=== PATIENT | male | born 1940 | race Caucasian/White ===

== ENCOUNTER → 2017-06-26 | Outpatient (CLI) | payer MEDICARE ==
[~2017-06-26] MED LIST: AMLODIPINE BESY10 MG PO; ASPIR 8181 M1 PO; ASPIRIN81 M2 PO; AZULFIDINE500 MG PO; BENICAR HCT 401 EACH PO; COLACE100 MG PO; COZAAR 50 MG TA50 M2 PO; ELIQUIS5 MG PO; FLEXERIL PO; FOLIC ACID 40400 MC1 PO; METAMUCIL1 EAC1 PO; METRONIDAZOLE500 M4 PO; NAPROSYN500 MG PO; NORCO 5-325 TA1 EACH PO; OXYCODONE HCL 55 MG PO; PAMELOR10 MG PO; PROTONIX40 M1 PO; REQUIP 0.25 M0.25 M1 PO; TRIAMCINOLONE A80 G2 TOP; TROKENDI XR50 MG PO; TYLENOL325 MG PO
== END ==
LOC: M.MRI 15:21
DX: M48.061 Spinal stenosis, lumbar region without neurogenic claudication (principal); G31.89 Other specified degenerative diseases of nervous system; M51.27 Other intervertebral disc displacement, lumbosacral region; M47.897 Other spondylosis, lumbosacral region; M47.896 Other spondylosis, lumbar region; M25.78 Osteophyte, vertebrae; I10 Essential (primary) hypertension

== ENCOUNTER → 2017-09-10 | Outpatient (CLI) | payer MEDICARE | LOC: M.MRI 07:22 | DX: S83.201A Bucket-handle tear of unspecified meniscus, current injury, left knee, initial encounter (principal); S83.202A Bucket-handle tear of unspecified meniscus, current injury, unspecified knee, initial encounter; M17.11 Unilateral primary osteoarthritis, right knee; X58.XXXA Exposure to other specified factors, initial encounter; Y93.89 Activity, other specified; Y92.89 Other specified places as the place of occurrence of the external cause; Y99.8 Other external cause status ==

== ENCOUNTER 2017-12-16 11:09 | Emergency (ER) | payer MEDICARE ==
[~2017-12-16] VITALS: Ht 182.9 cm; Wt 107.5 kg
[~2017-12-16 11:09] MED LIST changes: -COLACE100 MG PO; -ELIQUIS5 MG PO; -METAMUCIL1 EAC1 PO; -NORCO 5-325 TA1 EACH PO; -OXYCODONE HCL 55 MG PO; -TYLENOL325 MG PO
[2017-12-16 13:08] VITALS: BP 172/88
== END 2017-12-16 13:09 | disposition home or self-care (01) ==
LOC: M.ERS 11:09
DX: S61.211A Laceration without foreign body of left index finger without damage to nail, initial encounter (principal); I10 Essential (primary) hypertension; X58.XXXA Exposure to other specified factors, initial encounter; Y93.89 Activity, other specified; Y92.89 Other specified places as the place of occurrence of the external cause; Y99.8 Other external cause status

== ENCOUNTER 2017-12-19 07:53 | Inpatient (IN) | payer MEDICARE ==
[2017-12-04 09:06] LABS: ABSOLUTE BASOPHILS 0.1 thou/uL (0.0-0.2); ABSOLUTE EOSINOPHILS 0.3 thou/uL (0.0-0.7); ABSOLUTE LYMPHOCYTES 1.3 thou/uL (0.8-5.3); ABSOLUTE MONOCYTES 0.6 thou/uL (0.0-1.2); ABSOLUTE NEUTROPHILS 2.5 thou/uL (1.6-8.1); EOSINOPHILS 5.6 %; HEMATOCRIT 38.3 % (42.0-52.0); LYMPHOCYTES 26.3 %; MCH 31.6 pg (26.0-34.0); MCHC 33.9 g/dL (28.0-37.0); MCV 93.2 fL (80.0-100.0); MONOCYTES 13.3 %; MPV 7.7 fl. (7.2-11.1); NUCLEATED RBCS 0 /100WBC; PLATELET COUNT* 215 thou/uL (150-400); POLYS 52.8 %; RDW-CV 13.3 % (10.5-14.5); WBC 4.8 thou/uL (4.0-11.0)
[2017-12-04 09:15] LABS: APTT 26.4 Seconds (25.0-31.3); INR 1.1; PROTIME 10.3 Seconds (9.20-11.50)
[2017-12-04 09:45] LABS: ALBUMIN 3.4 g/dL (3.4-5.0); CALCIUM 8.1 mg/dL (8.5-10.1); CREATININE 1.6 mg/dL (0.6-1.3); TOTAL BILIRUBIN 0.4 mg/dL (<0.1-1.0); TOTAL PROTEIN 6.3 g/dL (6.4-8.2)
[2017-12-04 10:54] LABS: ESR (SEDRATE) 0 mm/hr (0-20)
--- NOTE | 2017-12-04 11:43 | EKG ---
[place] [address] ELECTROCARDIOGRAM REPORT Name: KRISS PAREDES Room: PRE IN [facility]#: [id number] Admission: Attend Phys: Frieda Harding Discharge: Date of : 44 Report #: [id number] THIS REPORT FOR: //name// [facility] Test Date: 2017-12-04 Test Time: 09:17:08 Pat Name: KRISS PAREDES Department: Room: Gender: M Beer Maker: : 1940 Requested By: Indio Preciado Order Number: [id number] Reading MD: Sharath Hernandez Measurements Intervals [place] Rate: 60 P: 41 CA: 162 QRS: 34 QRSD: 106 T: 44 QT: 440 QTc: 440 Interpretive Statements Sinus rhythm Compared to ECG 03/31/2013 10:46:53 No significant changes Electronically Signed On 12-04-2017 11:42:55 CDT by Sharath Hernandez [email or web address] <ELECTRONICALLY SIGNED> By: Sharath Hernandez MD, [facility] 12/04/17 1142 0917 09 Sharath Hernandez MD, FACC /EPI
[~2017-12-19] VITALS: Ht 167.6 cm; Wt 104.3 kg
[2018-01-19 06:06] LABS: ABSOLUTE BASOPHILS 0.1 thou/uL (0.0-0.2); ABSOLUTE EOSINOPHILS 0.4 thou/uL (0.0-0.7); ABSOLUTE LYMPHOCYTES 1.5 thou/uL (0.8-5.3); ABSOLUTE MONOCYTES 0.6 thou/uL (0.0-1.2); ABSOLUTE NEUTROPHILS 3.1 thou/uL (1.6-8.1); BASOPHILS 1.9 %; EOSINOPHILS 7.7 %; HEMATOCRIT 39.2 % (42.0-52.0); HEMOGLOBIN 13.1 gm/dL (14.0-18.0); LYMPHOCYTES 25.7 %; MCH 31.2 pg (26.0-34.0); MCHC 33.4 g/dL (28.0-37.0); MCV 93.4 fL (80.0-100.0); MONOCYTES 10.6 %; MPV 7.7 fl. (7.2-11.1); NUCLEATED RBCS 0 /100WBC; PLATELET COUNT* 250 thou/uL (150-400); POLYS 54.1 %; RDW-CV 13.1 % (10.5-14.5); WBC 5.7 thou/uL (4.0-11.0)
[2018-01-19 06:16] LABS: APTT 26.8 Seconds (25.0-31.3); INR 1.1; PROTIME 10.7 Seconds (9.20-11.50)
[2018-01-19 06:20] LABS: ALBUMIN 3.1 g/dL (3.4-5.0); CALCIUM 8.3 mg/dL (8.5-10.1); CREATININE 1.6 mg/dL (0.6-1.3); POTASSIUM 4.1 mmol/L (3.5-5.1); TOTAL BILIRUBIN 0.5 mg/dL (<0.1-1.0); TOTAL PROTEIN 6.7 g/dL (6.4-8.2)
[2018-01-19 07:14] LABS: ESR (SEDRATE) 10 mm/hr (0-20)
[2018-01-30 07:25] VITALS: BP 178/107
[2018-01-30 15:29] VITALS: BP 180/91
[2018-01-30 21:00] VITALS: BP 181/94
[2018-01-31 04:00] VITALS: BP 177/94
[2018-01-31 04:01] LABS: HEMOGLOBIN 11.9 gm/dL (14.0-18.0)
[2018-01-31 10:00] VITALS: BP 126/72
[2018-01-31 17:08] VITALS: BP 142/80
[2018-01-31 21:30] VITALS: BP 168/80
[2018-02-01 00:40] VITALS: BP 149/85
[2018-02-01 04:03] VITALS: BP 148/85
[2018-02-01 04:15] LABS: HEMATOCRIT 35.6 % (42.0-52.0); HEMOGLOBIN 11.8 gm/dL (14.0-18.0)
[2018-02-01 08:10] VITALS: BP 133/67
[2018-02-01 15:31] VITALS: BP 142/49
[2018-02-02 00:39] VITALS: BP 150/77
[2018-02-02 04:37] VITALS: BP 169/98
[2018-02-02 08:00] VITALS: BP 153/88
[2018-02-02] MEDS ORDERED: TYLENOL325 MG PO (14:36)
[2018-02-02] MEDS ORDERED: NORCO 5-325 TA1 EACH PO (14:37)
[2018-02-02] MEDS ORDERED: OXYCODONE HCL 55 MG PO (14:38)
[2018-02-02] MEDS ORDERED: METAMUCIL1 EAC1 PO (14:39)
[2018-02-02] MEDS ORDERED: ELIQUIS5 MG PO (14:43)
[2018-02-02] MEDS ORDERED: COLACE100 MG PO (14:44)
[2018-02-02 14:48] VITALS: BP 153/88
[2018-02-02 16:03] VITALS: BP 149/83
--- NOTE | 2018-02-08 09:29 | OP ---
[address] [address] OPERATIVE REPORT Name: KRISS PAREDES Room: [address] IN .R.#: [id number] Admission: 01/30/18 Attend Phys: Frieda Harding Discharge: 02/02/18 Date of : 44 Report #: [id number] THIS REPORT FOR: //name// CC: Indio Chavez DICTATED BY: Vincent Mccartney DO DATE OF SERVICE: 01/30/2018 PREOPERATIVE DIAGNOSIS: Primary advanced osteoarthritis, right knee. POSTOPERATIVE DIAGNOSIS: primary advanced osteoarthritis, right knee. PROCEDURE: Right total knee arthroplasty utilizing MicroPort Medial Pivot total knee arthroplasty system with the following components: 1. A size 7 right keeled tibial baseplate. 2. Size 7 right CR femur. 3. A 14 mm medial pivot polyethylene tibial bearing/spacer. 4. Two bags of plain [place] bone cement. SURGEON: Indio Preciado DO ASSISTANTS: Vincent Mccartney DO and Norman Doyle DO ANESTHESIA: General as well as local cocktail injected in the posterior capsule and a right lower extremity nerve block performed by anesthesia. ESTIMATED BLOOD LOSS: 150 mL ANTIBIOTICS: 2 g Ancef IV preoperatively. SPECIMENS: None. DRAINS: None. TOURNIQUET TIME: 40 minutes at 300 mmHg to the right lower extremity. COMPLICATIONS: None. DISPOSITION: Stable to PACU and will be admitted to the hospital for standard postoperative care. INDICATION FOR PROCEDURE: The patient is a pleasant 78-year-old male who was seen in [facility] multiple times with complaints [place] [address] OPERATIVE REPORT Name: KRISS PAREDES Manda Room: [address] IN [facility].#: [id number] Admission: 01/30/18 Attend Phys: Frieda Harding Discharge: 02/02/18 Date of : 44 Report #: [id number] pain that was worsening over the last couple of years. It is greatly impacting his quality of life, performing activities that he wishes to, was refractory to conservative measures consisting of oral anti-inflammatories, activity modifications, home physical therapy exercises and intra-articular corticosteroid injections for much greater than 6 months' duration. Therefore, we recommended proceeding with a right total knee arthroplasty. Risks, benefits, complications, indications and alternative treatments were discussed, and the patient wished to proceed with surgery today. DESCRIPTION OF PROCEDURE: The patient was seen in preoperative holding area, correct operative site, right knee was initialed. The patient was taken back to the operating suite, placed in supine position on the operating table, given benefit of general anesthetic. A well-padded tourniquet was placed to the right upper thigh. Right lower extremity was prepped and draped in typical fashion. Surgery began with a timeout identifying correct patient, correct procedure, correct preoperative antibiotics, correct performing surgeon and correct operative site. Next, tourniquet was inflated to 300 mmHg. A standard anterior midline longitudinal incision was made directly over the right knee extending from roughly 3-4 fingerbreadths proximal to the superior pole of the patella down to the tibial tubercle. Skin was incised with a #10 blade scalpel. Subcutaneous tissues were sharply incised down to the prepatellar fascia. Next, a new #10 blade scalpel was used to make a standard medial parapatellar arthrotomy. Subperiosteal dissection of the medial subperiosteal sleeve and to a lesser extent, lateral subperiosteal sleeve paying close attention to the patellar tendon was performed at the proximal tibia. Patella was everted and knee was flexed. A drill was used to enter the femur intramedullary canal in the normal fashion followed by insertion of the intramedullary distal femoral cutting guide. This was set at 10 mm and a 5-degree valgus resection. The cutting block was pinned into place. Resection was carried out in normal fashion. Bony debris was removed. AP sizer was placed to the distal femur, sized to a size 7. A 4-in-1 cutting block was impacted in 3 degrees external rotation of the distal femur in a normal fashion. It was pinned into place. Anterior, posterior chamfer cuts were carried out using the oscillating saw. Bony debris was removed. Next, extramedullary tibial guide was aligned appropriately over the medial aspect of the tibial tubercle, the tibial crest and the second metatarsal and center of the talus. A 10 mm resection was measured off the high lateral side. Tibial cutting block was pinned into place in normal fashion. A proximal tibia cut was performed in normal fashion protecting all ligamentous and other surrounding neurovascular structures. Next, menisci were excised using electrocautery. The knee was taken into extension. A 10 mm spacer block was inserted. We had plenty of bony resection to insert this and a drop myrna was inserted verifying appropriate alignment of our right lower extremity. Next, knee was flexed. A trial tibia was placed and it was size 7. It was pinned in position in the appropriate amount of rotation. Femoral component was impacted into place and was pinned into place. Next, [place] [address] OPERATIVE REPORT Name: KRISS PAREDES Room: [address] IN [facility]#: [id number] Admission: 01/30/18 Attend Phys: Frieda Harding Discharge: 02/02/18 Date of : 44 Report #: [id number] trial 12 followed by 14 mm polyethylene spacer was inserted, felt to have full flexion and extension and well-balanced, symmetric with both varus and valgus stressing, felt to be stable throughout range of motion and mid flexion stability with anterior and posterior drawer type maneuvers. Patella was decided not to be resurfaced at this time as it had a very minimal wear pattern noted. Next, trial femur was removed. Tibia was drilled and a cruciate punched in normal fashion. A tibial trial was removed as well. Next, all bony surfaces were thoroughly irrigated with pulsatile lavage, and the final components were cemented into place starting with the tibia followed by the femoral component. All excess cement was removed after impacting the final components into place. A final 14 mm polyethylene spacer was inserted at this time and impacted into the locking mechanism. A standard local cocktail was injected. Posterior capsule was cauterized prior to placing our final components. Tourniquet was deflated after allowing adequate time for our cement to harden. Knee was thoroughly irrigated and the capsule was closed with a few [id number] #1 Vicryl sutures followed by running #2 Stratafix barbed suture. Subcutaneous tissues were closed with a 2-0 Vicryl suture in a simple inverted fashion followed by subcuticular running suture using 3-0 Stratafix. Dermabond skin glue was applied. Standard dressings were applied consisting of Mepilex, BOBBI hose, and the patient was weaned from general anesthetic, transferred in stable condition to the PACU. All sponge and needle counts were correct x 2. <ELECTRONICALLY SIGNED> By: Indio Preciado DO 02/08/18 0929 0926 [id number] Preciado DO /nt
== END 2018-02-02 17:41 | DRG 470 ==
LOC: M.PRE 07:53 → M.TBA 01-30 06:02 → M.PRE 01-30 08:32 → M.ORTHSURG 01-30 11:23
PROVIDERS: Orthopaedic Surgery; ADMIT Internal Medicine
PROC: 0SRC0J9 Replacement of Right Knee Joint with Synthetic Substitute, Cemented, Open Approach (ICD-10-PCS; principal; 2018-01-30)
DX: M17.11 Unilateral primary osteoarthritis, right knee (principal); I10 Essential (primary) hypertension; K59.00 Constipation, unspecified; R41.0 Disorientation, unspecified; Z79.899 Other long term (current) drug therapy

== ENCOUNTER → 2018-02-11 | Outpatient (CLI) | payer MEDICARE ==
[~2018-02-11] MED LIST changes: +COLACE100 MG PO; +ELIQUIS5 MG PO; +METAMUCIL1 EAC1 PO; +NORCO 5-325 TA1 EACH PO; +OXYCODONE HCL 55 MG PO; +TYLENOL325 MG PO
== END ==
LOC: M.CT 08:22
DX: S00.93XD Contusion of unspecified part of head, subsequent encounter (principal); G31.9 Degenerative disease of nervous system, unspecified; X58.XXXD Exposure to other specified factors, subsequent encounter

== ENCOUNTER → 2018-08-10 | Outpatient (CLI) | payer MEDICARE | LOC: M.MRI 08-05 11:30 | DX: G31.9 Degenerative disease of nervous system, unspecified (principal); K21.9 Gastro-esophageal reflux disease without esophagitis; R26.9 Unspecified abnormalities of gait and mobility ==

== ENCOUNTER → 2019-05-13 | Outpatient (CLI) | payer MEDICARE | LOC: M.MRI 05-10 11:56 → M.CT 07:42 | DX: G31.9 Degenerative disease of nervous system, unspecified (principal); G45.9 Transient cerebral ischemic attack, unspecified; K21.9 Gastro-esophageal reflux disease without esophagitis; E11.9 Type 2 diabetes mellitus without complications; R26.9 Unspecified abnormalities of gait and mobility; R91.1 Solitary pulmonary nodule; R44.3 Hallucinations, unspecified; G47.62 Sleep related leg cramps; I10 Essential (primary) hypertension; R90.82 White matter disease, unspecified ==

== ENCOUNTER 2019-06-01 16:55 | Inpatient (IN) | payer MEDICARE ==
[~2019-06-01] VITALS: Ht 182.9 cm; Wt 109.3 kg
[2019-06-01 17:11] VITALS: BP 225/118
[2019-06-01] MEDS ORDERED: SUPER THERAVIT1 EACH PO (17:17)
[2019-06-01] MEDS ORDERED: VITAMIN D1000 UNI2 PO (17:17)
[2019-06-01] MEDS ORDERED: VENLAFAXINE HCL75 M2 PO (17:19)
[2019-06-01 17:59] LABS: ABSOLUTE BASOPHILS 0.1 thou/uL (0.0-0.2); ABSOLUTE EOSINOPHILS 0.2 thou/uL (0.0-0.7); ABSOLUTE MONOCYTES 0.7 thou/uL (0.0-1.2); ABSOLUTE NEUTROPHILS 2.2 thou/uL (1.6-8.1); BASOPHILS 1.3 %; HEMATOCRIT 35.1 % (42.0-52.0); LYMPHOCYTES 24.7 %; MCH 32.7 pg (26.0-34.0); MCHC 34.3 g/dL (28.0-37.0); MCV 95.3 fL (80.0-100.0); MPV 7.4 fl. (7.2-11.1); NUCLEATED RBCS 0 /100WBC; PLATELET COUNT* 230 thou/uL (150-400); RBC 3.68 mil/uL (4.50-6.00); RDW-CV 12.4 % (10.5-14.5); WBC 4.2 thou/uL (4.0-11.0)
[2019-06-01 18:09] LABS: CALCIUM 8.5 mg/dL (8.5-10.1); CREATININE 1.6 mg/dL (0.6-1.3); POTASSIUM 3.9 mmol/L (3.5-5.1)
[2019-06-01 18:10] LABS: PROTIME 10.5 Seconds (9.20-11.50)
[2019-06-01 18:19] LABS: ALBUMIN 3.6 g/dL (3.4-5.0); TOTAL BILIRUBIN 0.4 mg/dL (<0.1-1.0); TOTAL PROTEIN 7.1 g/dL (6.4-8.2)
[2019-06-01 19:20] VITALS: BP 211/110
[2019-06-01 19:20] LABS: URINE BILIRUBIN NEGATIVE (Negative); URINE BLOOD NEGATIVE (Negative); URINE CLARITY CLEAR; URINE COLOR YELLOW; URINE GLUCOSE-RANDOM NEGATIVE (Negative); URINE KETONES NEGATIVE (Negative); URINE LEUKOCYTES-REFLEX NEGATIVE (Negative); URINE NITRITE-REFLEX NEGATIVE (Negative); URINE PROTEIN NEGATIVE (Negative); URINE SPECIFIC GRAVITY 1.025 (1.005-1.030); URINE UROBILINOGEN 0.2 E.U./dl (0.2-1.0)
[2019-06-01 20:00] VITALS: BP 162/100
[2019-06-01 20:19] LABS: AMP/METHAMP Negative (Negative); BARBITURATES Negative (Negative); BENZODIAZEPINES Negative (Negative); COCAINE Negative (Negative); METHADONE Negative (Negative); OPIATES Negative (Negative); PCP Negative (Negative); THC Negative (Negative)
[2019-06-02] VITALS: BP 181/101
[2019-06-02 04:00] VITALS: BP 186/104
[2019-06-02 06:16] LABS: ABSOLUTE BASOPHILS 0.1 thou/uL (0.0-0.2); ABSOLUTE EOSINOPHILS 0.2 thou/uL (0.0-0.7); ABSOLUTE LYMPHOCYTES 0.8 thou/uL (0.8-5.3); ABSOLUTE MONOCYTES 0.5 thou/uL (0.0-1.2); ABSOLUTE NEUTROPHILS 1.6 thou/uL (1.6-8.1); BASOPHILS 1.9 %; EOSINOPHILS 7.5 %; HEMATOCRIT 34.4 % (42.0-52.0); HEMOGLOBIN 11.6 gm/dL (14.0-18.0); LYMPHOCYTES 25.2 %; MCH 32.3 pg (26.0-34.0); MCHC 33.9 g/dL (28.0-37.0); MCV 95.4 fL (80.0-100.0); MONOCYTES 14.8 %; MPV 7.1 fl. (7.2-11.1); NUCLEATED RBCS 0 /100WBC; PLATELET COUNT* 209 thou/uL (150-400); POLYS 50.6 %; RBC 3.61 mil/uL (4.50-6.00); RDW-CV 12.5 % (10.5-14.5); WBC 3.2 thou/uL (4.0-11.0)
[2019-06-02 06:28] LABS: ANION GAP 11 mmol/L (7-16); BUN 23 mg/dL (7-18); CALCIUM 8.4 mg/dL (8.5-10.1); CHLORIDE 107 mmol/L (98-107); CHOLESTEROL 165 mg/dL (<200); CO2 22 mmol/L (21-32); CREATININE 1.4 mg/dL (0.6-1.3); GLUCOSE 103 mg/dL (70-99); HDL CHOLESTEROL 53 mg/dL (>40); LDL CHOLESTEROL 95 mg/dL (<100); MAGNESIUM 2.1 mg/dL (1.8-2.4); PHOSPHORUS* 3.9 mg/dL (2.5-4.9); POTASSIUM 3.5 mmol/L (3.5-5.1); SODIUM 140 mmol/L (136-145); TC:HDL 3.1 Ratio (Not establshd); TRIGLYCERIDE 88 mg/dL (<150); VLDL 18 mg/dL (<40)
[2019-06-02 06:29] LABS: SERUM ASSESSMENT Clear
--- NOTE | 2019-06-02 07:10 | NUR ---
CHANGE OF SHIFT, BEDSIDE REPORT GIVEN PATIENT SEEN AT BEDSIDE, IN BED ASLEEP ASSUMED PATIENT CARE
[2019-06-02 08:00] VITALS: BP 197/103
--- NOTE | 2019-06-02 08:18 | NUR ---
RECEVED REPORT AND ASSUMED CARE AT 1930. PT TRANSPORTED FROM ED TO ROOM 205. PT DENIES PAIN. ASSESSMENT COMPLETED CHARTED. ORIENTATED TO THE ROOM, FALL POLICY, CALL LIGHT. DISCUSSED PLAN OF CARE/ VERBALIZED UNDERSTANDING. NIH 1, UNABLE TO KIMI ATAXIA WITH R LEG. RECENT R KNEE REPLACEMENT. NO ACUTE CHANGES TROUGH THE NIGHT. PT UP WITH ASSIST, ON RA. HOURLY ROUNDING COMPLETED AND ALL NEEDS MET
[2019-06-02 13:14] VITALS: BP 123/76
--- NOTE | 2019-06-02 13:24 | NUR ---
Pt is A&O. Resides at home with his . Pt states that he has a walker and cane at home, but admits that he hasn't been using any DME. No home o2. No hx of HH. Hx of skilled at [facility]. [place], no needs anticipated. DPOA form completed, copy placed in Pt's chart.
[2019-06-02 16:00] VITALS: BP 139/79
--- NOTE | 2019-06-02 16:32 | 2DMMODE ---
[place] [address] 2 D/M-MODE ECHOCARDIOGRAM Name: KRISS PAREDES Room: [address] IN [facility]#: [id number] Admission: 06/01/19 Attend Phys: Mirza Kinney MD Discharge: Date of : 44 Date of Service: 06/02/19 1632 Report #: [id number] THIS REPORT FOR: //name// APPROVED REPORT Study performed: 06/02/2019 10:00:14 EXAM: Comprehensive 2D, Doppler, and color-flow Echocardiogram Patient Location: In-Patient Room #: [facility] Status: routine BSA: 2.27 HR: 61 bpm BP: 197/103 mmHg Rhythm: NSR Other Information Study Quality: Good Indications CVA/TIA Echo Enhancing Agent Indication: Rule out Shunt Agent(s) / Amount(s) Used: Agitated Saline 10 cc 2D Dimensions IVSd: 12.05 (7-11mm) LVOT Diam: 21.47 (18-24mm) LVDd: 54.52 mm PWd: 9.25 (7-11mm) Ascending Ao: 36.12 (22-36mm) LVDs: 38.42 (25-40mm) Aortic Root: 39.66 mm Volumes Left Atrial Volume (Systole) LA ESV Index: 30.90 mL/m2 Aortic Valve AoV Peak Elder.: 1.57 m/s AO Peak Gr.: 9.87 mmHg LVOT Max P.14 mmHg AO Mean Gr.: 5.50 mmHg LVOT Mean P.65 mmHg LVOT Max V: 0.89 m/s AO V2 VTI: 34.45 cm LVOT Mean V: 0.59 m/s MANUEL (VTI): 2.36 cm2 LVOT V1 VTI: 22.48 [place] [address] 2 D/M-MODE ECHOCARDIOGRAM Name: KRISS PAREDES Room: [address] IN .R.#: [id number] Admission: 06/01/19 Attend Phys: Mirza Kinney MD Discharge: Date of : 44 Date of Service: 06/02/19 1632 Report #: [id number] Mitral Valve MV Mean Gr.: 1.53 mmHg E/A Ratio: 0.63 MV Decel. Time: 465.80 ms MV E Max Elder.: 0.60 m/s MV PHT: 135.08 ms MVA (PHT): 1.63 cm2 TDI E/Lateral E': 10.00 E/Medial E': 10.00 Medial E' Elder.: 0.06 m/s Lateral E' Elder.: 0.06 m/s Pulmonary Valve PV Peak Elder.: 1.00 m/s PV Peak Gr.: 4.02 mmHg Tricuspid Valve RAP Estimate: 5.00 mmHg TR Peak Gr.: 31.34 mmHg RVSP: 36.00 mmHg PA Pressure: 36.00 mmHg Left Ventricle The left ventricle is normal size. There is normal LV segmental wall motion. There is normal left ventricular wall thickness. Left ventricular systolic function is normal. LVEF is 55-60%. Grade I - abnormal relaxation pattern. Right Ventricle The right ventricle is normal size. The right ventricular systolic function is normal. Atria Left atrium is mildly dilated. Interatrial septum is intact without evidence of ASD or PFO. The right atrium size is normal. Aortic Valve Mild aortic valve sclerosis. No aortic regurgitation is present. There is no aortic valvular stenosis. Mitral Valve There is mitral annular calcification. Mild mitral regurgitation. Mild to moderate mitral stenosis. Tricuspid Valve The tricuspid valve is normal in structure. Trace tricuspid regurgitation. [place] [address] 2 D/M-MODE ECHOCARDIOGRAM Name: PAREDESKRISS PIERCE Manda Room: [address] IN ..#: [id number] Admission: 06/01/19 Attend Phys: Mirza Kinney MD Discharge: Date of : 44 Date of Service: 06/02/19 1632 Report #: [id number] Pulmonic Valve The pulmonary valve is normal in structure. There is no pulmonic valvular regurgitation. Great Vessels The aortic root is normal in size. IVC is not well visualized. Pericardium There is no pericardial effusion. <Conclusion> The left ventricle is normal size. There is normal left ventricular wall thickness. Left ventricular systolic function is normal. LVEF is 55-60%. Grade I - abnormal relaxation pattern. Interatrial septum is intact without evidence of ASD or PFO. Left atrium is mildly dilated. Mild aortic valve sclerosis. There is no aortic valvular stenosis. There is mitral annular calcification. Mild mitral regurgitation. Mild to moderate mitral stenosis. Trace tricuspid regurgitation. Mild pulmonary hypertension. <ELECTRONICALLY SIGNED> By: Marcellus Conley MD, FACC 06/02/19 163 [id number] 163 Marcellus Conley MD, FACC /INF
--- NOTE | 2019-06-02 16:54 | EKG ---
[place] [address] ELECTROCARDIOGRAM REPORT Name: KRISS PAREDES Room: [address] ADM IN M.R.#: [id number] Admission: 06/01/19 Attend Phys: Mirza Kinney MD Discharge: Date of : 44 Report #: [id number] THIS REPORT FOR: //name// [facility] ED Test Date: 2019-06-01 Test Time: 17:45:59 Pat Name: KRISS PAREDES Department: Room: [facility] Gender: M Director Of Testing: : 1940 Requested By: Waylon Coleman Order Number: [id number] MD: Marcellus Conley Measurements Intervals [place] Rate: 62 P: 45 NV: 169 QRS: 31 QRSD: 108 T: 43 QT: 444 QTc: 451 Interpretive Statements Sinus rhythm Abnormal R-wave progression, early transition Compared to ECG 12/04/2017 09:17:08 No significant changes Electronically Signed On 06-02-2019 16:54:16 IMAGE CONSULTANT by Marcellus Conley [email or web address] <ELECTRONICALLY SIGNED> By: Marcellus Conley MD, [facility] 06/02/19 1654 1745 1745 Marcellus Conley MD, FAC /EPI
[2019-06-02 20:05] VITALS: BP 146/90
[2019-06-02 23:07] LABS: GLYCOHEMOGLOBIN (HGB A1C) 6.1 % (4.8-5.6)
[2019-06-03] VITALS (9 sets, daily range): BP systolic 145–213; BP diastolic 80–111
--- NOTE | 2019-06-03 06:52 | NUR ---
PT IS ABLE TO COMMUNICATE HIS NEEDS TO STAFF EFFECTIVELY, ALTHOUGH, HE IS FREQUENTLY IMPULSIVE; BED ALARM ON, FALL RISK. HE HAS DENIED THE NEED FOR PAIN MEDICATION UP TO THIS TIME. EEG AND ECHO TENTATIVELY SCHEDULED FOR TODAY. POSSIBLE DISCHARGE LATER TODAY.
[2019-06-03] MEDS ORDERED: LIPITOR40 MG PO (12:25)
[2019-06-03] MEDS ORDERED: CHLORTHALIDONE25 MG PO (12:26)
[2019-06-03] MEDS ORDERED: FLONASE 0.05%50 MCG NASAL (12:26)
[2019-06-03] MEDS ORDERED: AUGMENTIN 875-1 EACH PO (12:26)
[2019-06-03 12:48] LABS: CREATININE 1.6 mg/dL (0.6-1.3); POTASSIUM 3.7 mmol/L (3.5-5.1)
--- NOTE | 2019-06-03 19:00 | NUR ---
ASSUMED PT CARE AT 0700, PT A&O X4, RA, PACKAGE HANDLER TRACING SINUS RHYTHM, FULL ASSESSMENT CHARTED. PT DISCHARGED AT APPROX 1645 WITH FAMILY, EDUCATED ON ALL DISCHARGE INSTRUCTIONS INCLUDING MEDICATIONS AND FOLLOW UP APPOINTMENTS. HOURLY ROUNDING COMPLETED, IV AND PACKAGE HANDLER REMOVED.
--- NOTE | 2019-06-04 13:36 | CON ---
[address] [address] CONSULTATION Name: KRISS PAREDES Room: [address] IN .R.#: [id number] Admission: 06/01/19 Attend Phys: Mirza Kinney MD Discharge: 06/03/19 Date of : 44 Report #: [id number] THIS REPORT FOR: //name// CC: Sherwin Kinney DATE OF SERVICE: 06/02/2019 HISTORY OF PRESENT ILLNESS: This is a 79-year-old male patient who was seen by me for confusion. This patient has a pretty prolonged history. I believe I have seen him sometime, but I do not remember. I will pull out his records from the computer tomorrow to see if we really saw him. It looks like the patient's blood pressure fluctuates. He was in [facility]. Family said his blood pressure was 180 systolic and when he stood up, it went to less than 100 systolic. He does not appear to be on any medication, but his blood pressure was very high when he came. It looks like some of his episodes were because of mechanical fall. Some of them may be postural hypotension or some other cause. He does have a history of prostate cancer and that has been treated with radiation. His memory is impaired. He had some sickness, which was diagnosed as Lyme disease time ago. He has a right knee replacement. He has degenerative joint disease. He has a history of hypertension and hernia repair. He was suspected of having a stroke here, so he underwent an MRI of the brain that does not appear to be showing any definite abnormality. His 14-point review of systems was carried out and this was his relevant 14-point review of system. PAST MEDICAL HISTORY: Positive for what looks like postural hypertension. The patient has been on multiple medications, which can cause that. They apparently changed his medications, but I do not know what changed was done. It looks like he was also on anticoagulation at one time. FAMILY HISTORY: Negative for any early age stroke. SOCIAL HISTORY: The patient has a pretty supporting family and they are the one who provide history. He does not use alcohol. PHYSICAL EXAMINATION: Indicate that he is alert. He is responsive. His memory is poor, but they say his memory is poor for a long time. His fund of knowledge is diminished. His speech looks intact. Family said that he has delusions. Cranial nerve examination 2-12 looks unremarkable. Neuromuscular examinations indicate that he did not do very well with the position sense when I examined him. There is no meningeal sign. There is no carotid bruit in this patient. He is a well-developed individual. He has no thyroid mass. There is no carotid bruit. Cardiac examination does not appear to be showing any atrial fibrillation. Respiratory examination does not show [place] [address] CONSULTATION Name: KRISS PAREDES Room: [address] IN [facility]#: [id number] Admission: 06/01/19 Attend Phys: Mirza Kinney MD Discharge: 06/03/19 Date of : 44 Report #: [id number] Blood pressure is 123/76, respiration is 20, pulse is 80, temperature is 98.1. IMPRESSION: We need to get his old records from [facility] and my office if I saw him to see if he has any documented postural hypertension. In any event, when he came in, his blood pressure was pretty high and that high blood pressure itself can cause episodes of syncope. He was on multiple medications, which can cause postural hypertension and looks like this stopped many of them. I am not sure how confirmed his Lyme disease history was. I am not sure about his position sense and gait difficulty either. If his position sense is impaired, that will be a problem. He will need an EMG as an outpatient and he needs an evaluation of vitamin B12 and copper and any perineoplastic process. All this evaluation is going to be extensive and instead doing all this evaluation, I will just record from [facility]. Total time spent was about 50 minutes and majority counseling and coordinating. <ELECTRONICALLY SIGNED> By: Oscar William MD 06/04/19 1336 1625 [id number] William MD /nt
== END 2019-06-03 17:54 | disposition home or self-care (01) | DRG 69 ==
LOC: M.ERS 16:55 → M.2W 18:19 → M.TBA-ER 18:19 → M.2W 19:31
PROVIDERS: Emergency Medicine; ADMIT Family Medicine
PROC: 4A00X4Z Measurement of Central Nervous Electrical Activity, External Approach (ICD-10-PCS; principal; 2019-06-03)
DX: G45.9 Transient cerebral ischemic attack, unspecified (principal); G93.41 Metabolic encephalopathy; N18.4 Chronic kidney disease, stage 4 (severe); I95.1 Orthostatic hypotension; I16.0 Hypertensive urgency; I12.9 Hypertensive chronic kidney disease with stage 1 through stage 4 chronic kidney disease, or unspecified chronic kidney disease; R29.6 Repeated falls; M19.90 Unspecified osteoarthritis, unspecified site; Z96.651 Presence of right artificial knee joint; F03.90 Unspecified dementia, unspecified severity, without behavioral disturbance, psychotic disturbance, mood disturbance, and anxiety; J32.9 Chronic sinusitis, unspecified; C61 Malignant neoplasm of prostate; R13.10 Dysphagia, unspecified; I27.20 Pulmonary hypertension, unspecified; Z85.46 Personal history of malignant neoplasm of prostate; Z92.3 Personal history of irradiation; Z79.899 Other long term (current) drug therapy; Z79.82 Long term (current) use of aspirin

== ENCOUNTER 2019-08-15 22:54 | Emergency (ER) | payer OTHER, MEDICARE ==
[~2019-08-15] VITALS: Ht 182.9 cm; Wt 117.0 kg
[~2019-08-15 22:54] MED LIST changes: +AUGMENTIN 875-1 EACH PO; +CHLORTHALIDONE25 MG PO; +FLONASE 0.05%50 MCG NASAL; +LIPITOR40 MG PO; +SUPER THERAVIT1 EACH PO; +VENLAFAXINE HCL75 M2 PO; +VITAMIN D1000 UNI2 PO
[2019-08-16 00:45] VITALS: BP 139/96
== END 2019-08-16 00:45 | disposition home or self-care (01) ==
LOC: M.ERS 22:54
DX: S01.81XA Laceration without foreign body of other part of head, initial encounter (principal); I10 Essential (primary) hypertension; Z90.89 Acquired absence of other organs; Z96.651 Presence of right artificial knee joint; Z85.46 Personal history of malignant neoplasm of prostate; Z98.890 Other specified postprocedural states; W01.0XXA Fall on same level from slipping, tripping and stumbling without subsequent striking against object, initial encounter; Y92.89 Other specified places as the place of occurrence of the external cause; Y93.01 Activity, walking, marching and hiking; Y99.8 Other external cause status